=== PATIENT | female | born 1950 | race Caucasian/White ===

== ENCOUNTER → 2017-02-05 | Outpatient (CLI) | payer OTHER | LOC: FIMAGING 08:46 | PROVIDERS: ATTEND Internal Medicine Geriatric Medicine | DX: R10.9 Unspecified abdominal pain (principal); R11.0 Nausea; R63.0 Anorexia ==

== ENCOUNTER 2018-10-01 14:43 | Emergency (ER) | payer OTHER ==
[2018-10-01] MEDS ORDERED: METOCLOPRAMIDE 10 MG/2 ML VIAL IVP ONE (16:26)
[2018-10-01] MEDS ORDERED: NS 1,000 ML IV ONE (16:28)
--- NOTE | 2018-10-01 17:01 | EDPHY ---
H & P Stated Complaint: Pt. states BOWLES,unsteady,nausea since hit head/fall 09/27/2018 Time Seen by Provider: 10/01/18 15:00 HPI/ROS: CHIEF COMPLAINT: Headache after fall History by patient HISTORY OF PRESENT ILLNESS: 68-year-old woman presents complaining of headache , nausea, photophobia and word-finding difficulties after falling and striking her head 4 days ago. Patient states she [place] a step landing on her left side striking her head on the cement. She is not sure if she lost consciousness or not the time. She said that night her r ear was burning and she had a headache. Subsequently she has continued to have a headache in the other symptoms described above. 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 She feels like she has had some memory problems. She denies any other focal numbness or weakness. She has had no actual vomiting. She has tried ibuprofen and Tylenol with minimal relief. She initially had some neck pain right after the fall but this is resolved. She denies other pain or injury. She has no history of migraines. REVIEW OF SYSTEMS: As in HPI, and all other systems reviewed and are negative Source: Patient - Medical/Surgical History Hx Asthma: No Hx Chronic Respiratory Disease: No Hx Diabetes: No Hx Cardiac Disease: No Hx Renal Disease: No Hx Cirrhosis: No Hx Alcoholism: No Hx HIV/AIDS: No Hx Splenectomy or Spleen Trauma: No Other PMH: leukemia cml. hypothyroid. lupus. oral chemo. colitis/ diverticulitis -2012. depression - Social History Smoking Status: Never smoked - Physical Exam Exam: General Appearance: Alert, nontoxic-appearing, sitting in a darkened room Head: normocephalic, atraumatic Eyes: Pupils equal and round, reactive to light, no pallor or injection. TMs: No hemotympanum Mouth: Mucous membranes moist. Respiratory: Normal, effort, lungs are clear to auscultation. No wheezes, rales or rhonchi. Cardiovascular: Regular rate and rhythm. S1, S2, no murmurs, gallops or rubs appreciated Gastrointestinal: Abdomen is soft and nontender, no masses, bowel sounds normal. Back: No CVA tenderness, no bony tenderness Neurological: Awake, alert and oriented x 3, cranial nerves 2 through 12 intact except for left eye 6 nerve palsy, no pronator drift, normal gait, heel to gama intact, [id number] intact, DTRs 2+ and equal bilaterally, sensation equal bilaterally Skin: Warm and dry, no rashes. Musculoskeletal: No deformities or tenderness. Extremities: full range of motion, no edema, DP2+ bilat Psychiatric: Patient has normal affect, there is no agitation. Constitutional: Initial Vital Signs Temperature (C) 36.8 C 10/01/18 14:49 Heart Rate 68 10/01/18 14:49 Respiratory Rate 16 10/01/18 14:49 Blood Pressure 116/53 L 10/01/18 14:49 O2 Sat (%) 95 10/01/18 14:49 O2 Delivery Mode Room Air Allergies/Adverse Reactions: meperidine HCl [From Demerol] Allergy (Severe, Verified 10/01/18 14:49) Other-Enter Comments naproxen [From Naprosyn] Allergy (Severe, Verified 10/01/18 14:49) Other-Enter Comments Sulfa (Sulfonamide Antibiotics) Allergy (Severe, Verified 10/01/18 14:49) Hives ferumoxytol [From Feraheme] Allergy (Verified 10/01/18 14:49) Rash Home Medications: Medication Instructions Recorded Levothyroxine [Synthroid 137 mcg 11/10/09 (*)] lamoTRIgine [LamICTAL 100 MG (*)] 05/31/16 Gabapentin [Neurontin 300 MG (*)] 10/12/16 LORazepam [Ativan (*)] 10/12/16 Lysine HCl [L-LYSINE] 10/12/16 Multivitamins [Multivitamin (*)] 10/12/16 buPROPion XL [Wellbutrin 150mg XL] 75 10/12/16 traZODone [traZODone 150MG (*)] 10/12/16 Acetaminophen [Tylenol 325mg (*)] 12/04/16 Aspirin EC [Aspirin EC 325 mg (*)] 12/04/16 Nitroglycerin [Nitrostat 0.4 mg 12/04/16 (*)] Medical Decision Making - Diagnostics Imaging Results: Imaging Impressions Head CT 10/01/18 15:04 Impression: There is no acute intracranial abnormality identified on this unenhanced CT evaluation. If there is further clinical concern regarding the patient's symptoms, MR imaging is suggested, if not otherwise contraindicated. Findings were discussed with Sarina Grossman MD at 15:47, on 10/01/2018. ED Course/Re-evaluation: 68-year-old woman presents with headache, nausea and photophobia and some confusion word-finding difficulties after head injury 4 days ago. Patient has an unremarkable neurologic exam except for her chronic diplopia. Head CT was read as negative by the radiologist. Patient's symptoms are all consistent with concussive syndrome. I discussed this with the patient and her . Patient continued plane of fairly severe headache and photophobia so she was given metoclopramide and Benadryl with improvement. We discussed expectations for concussion, home care, and follow-up. - Data Points Medications Given: Discontinued Medications Diphenhydramine HCl (Benadryl Injection) 25 mg IVP EDNOW ONE Stop: 10/01/18 16:17 Last Admin: 10/01/18 16:37 Dose: 25 mg Sodium Chloride (Ns) 1,000 mls @ 0 mls/hr IV ONCE ONE PRN Reason: Wide Open Stop: 10/01/18 16:29 Last Admin: 10/01/18 16:37 Dose: 1,000 mls Metoclopramide HCl (Reglan Injection) 10 mg IVP EDNOW ONE Stop: 10/01/18 16:27 Last Admin: 10/01/18 16:49 Dose: 10 mg Departure - Departure Disposition: Home, Routine, Self-Care Clinical Impression: Concussion Qualifiers: Encounter type: initial encounter Loss of consciousness presence/duration: without LOC Qualified Code(s): S06.0X0A - Concussion without loss of consciousness, initial encounter Headache Qualifiers: Headache type: post-traumatic Headache chronicity pattern: acute headache Intractability: not intractable Qualified Code(s): G44.319 - Acute post- traumatic headache, not intractable Condition: Fair Instructions: Concussion (ED), Post Concussion Syndrome (ED) Additional Instructions: You were seen by Dr. Sarina Grossman today. Your symptoms are all consistent with concussion. Your CT scan was within normal limits. You should slowly get better over the next couple weeks. Please follow up with her primary care physician next week for re-evaluation. Return for any worsening or new concerns. Referrals: PACHECO JULIEN [Primary Care Provider] - As per Instructions
[2018-10-01 17:45] VITALS: BP 98/50
== END 2018-10-01 17:10 | disposition home or self-care (01) ==
LOC: CED 14:43
DX: S06.0X0A Concussion without loss of consciousness, initial encounter (principal); G44.319 Acute post-traumatic headache, not intractable; F32.9 Major depressive disorder, single episode, unspecified; E86.9 Volume depletion, unspecified; W10.8XXA Fall (on) (from) other stairs and steps, initial encounter; Y92.242 Post office as the place of occurrence of the external cause
CPT/HCPCS: 70450; 96361; 96374; 96375; 99285; J1200; J2765

== ENCOUNTER → 2019-02-08 | Outpatient (CLI) | payer OTHER | LOC: CIMAGING 08:52 | PROVIDERS: ATTEND Internal Medicine Hematology & Oncology | DX: J41.0 Simple chronic bronchitis (principal); R19.09 Other intra-abdominal and pelvic swelling, mass and lump; C92.12 Chronic myeloid leukemia, BCR/ABL-positive, in relapse | CPT/HCPCS: 71046-PO; 76700-PO ==